=== PATIENT | female | born 2000 | race Caucasian/White ===

== ENCOUNTER 2020-01-16 00:25 | Emergency (ER) | payer BC, SELFPAY ==
[2020-01-16 00:30] VITALS: BP 116/78; PULSE 95; RESP 16; TEMP 36.6; O2SAT 97; BMI 23.1
--- NOTE | 2020-01-16 00:54 | ED_ITS ---
HPI - Headache General: Chief Complaint: Headache Stated Complaint: blurred vision, headache, shakes Time Seen by Provider: 01/16/20 00:49 Source: patient and family Mode of arrival: ambulatory Limitations: no limitations History of Present Illness: HPI Narrative: Rebecca Head is a 19-year-old female who comes in complaining of headaches intermittently for the past month. Patient states she normally does not get headaches. The headache she describes today is that of pain on the left side of her head that then last for about a minute which is then slowly followed by hearing and vision difficulties and nausea. When asked further the patient states that she has nausea almost constantly. She states that she wakes up with it and it lasts almost all day. The patient has not had any vomiting, fever, neck pain or stiffness, chest pain, shortness of breath, abdominal or back pain. When asked about now the patient states she is not currently nauseated but does reiterate that she is normally almost always nauseated. Patient's had nothing like this before until this last month. She is unaware of anything that makes her symptoms better or worse. Associated symptoms: Deny chest pain, confusion, diaphoresis, fever(s), lightheadedness, malaise, nausea, pre-syncope, rash, syncope or vomiting Review of Systems Const: Denies: fever(s), chills, body aches, fatigue, malaise or diaphoresis Eyes: Reports: change in vision (See HPI); Denies: blurry vision, photophobia, eye discomfort, eye discharge, eye redness or yellow eyes ENMT: Denies: throat pain, odynophagia, hoarseness, swelling of lips/tongue, ear or mastoid pain, ear discharge, change in hearing or nasal discharge Card: Denies: chest pain, palpitations, irregular heart rhythm, edema, lightheadedness, syncope, pre-syncope, dyspnea on exertion or orthopnea Resp: Denies: dyspnea, productive cough, non-productive cough, wheezing, hemoptysis or chest congestion GI: Denies: abdominal pain, nausea, vomiting, hematemesis, coffee ground emesis, heartburn, diarrhea, constipation, GI cramping, hematochezia or melena : Denies: flank pain, dysuria, urinary frequency, urinary urgency or hematuria Musc: Denies: neck pain, back pain, extremity pain, extremity swelling, joint pain, joint swelling, joint redness, joint warmth or joint stiffness Skin/Breast: Denies: rash, pruritus, erythema, skin pain or skin tenderness Neuro: Reports: headache(s); Denies: numbness in extremities, weakness in extremities, sensory changes, lack of coordination, difficulty walking, dizziness, vertigo, confusion, Slurred speech present or seizure-like activity Alexis/Lymph: Denies: easy bruising, easy bleeding, petechiae, purpura or enlarged lymph nodes All/Imm: Denies: urticaria, throat swelling, tongue swelling, facial swelling or acute wheezing PFSH ED PFSH: Medical History No pertinent past medical history Surgical History (Reviewed 01/16/20 @ :27 by Janay Lisa) S/P tonsillectomy [place] teeth removed Social History Smoking and tobacco status: never smoked Alcohol intake: never Physical Exam Const: COMMON NORMALS: no acute distress, patient oriented x3, no limitations and alert GENERAL APPEARANCE: cooperative HENMT: COMMON NORMALS: normocephalic, atraumatic, external ears normal, EAC's normal and Normal external nose present HEAD & SCALP: normal to inspection, normocephalic and atraumatic FACE & SINUS: normal facial exam and face symmetric NOSE: Normal external nose present and Normal nares present EXTERNAL EAR: Yes external ears normal EXTERNAL AUDITORY CANAL: EAC's normal MOUTH: Normal oral and palatal mucosa present, lip normal and tongue normal Eye: COMMON NORMALS: Equal, round and reactive pupils present and conjunctivae normal GENERAL EYE: appearance normal, both eyes and all related structures ALIGNMENT: Yes alignment normal PERIORBITAL: periorbital findings normal EYELID: eyelids normal CONJUNCTIVA: Yes conjunctivae normal SCLERA: sclerae normal PUPIL: Yes Equal, round and reactive pupils present Neck/C-Spine: COMMON NORMALS: full ROM, no lymphadenopathy, supple, no meningeal signs and no JVD GENERAL: Yes normal visual inspection and Yes trachea midline Chest: COMMONS NORMALS: normal inspection of the chest and normal palpation of entire chest wall Resp: COMMON NORMALS: normal respiratory effort, No retractions, No use of accessory muscles and clear to auscultation bilaterally EFFORT & INSPECTION: Yes able to speak in complete sentences and Yes symmetric chest movement AUSCULTATION: clear to auscultation bilaterally, no crackles, no rales, no rhonchi and no wheezes Cardio: COMMON NORMALS: no JVD, regular rate, regular rhythm, S1 normal heart sound present and S2 normal heart sound present RATE: regular rate RHYTHM: regular rhythm HEART SOUNDS: S1 normal heart sound present, S2 normal heart sound present, no click, no gallops, no murmurs and no rubs GI: COMMON NORMALS: Soft to palpation and No hepatosplenomegaly present PALPATION: Yes Soft to palpation, No Tenderness to palpation present (GI), No Guarding due to palpation present (GI), No Rigid due to palpation, Yes No hepatosplenomegaly present, No Hernia present, No Palpable mass present and No Pulsatile mass present : COMMON NORMALS: Yes no CVA tenderness BLADDER/KIDNEY EXAM: Yes no CVA tenderness EXTERNAL FEMALE EXAM: No Hernia present Back/Pelvis: COMMON NORMALS: no CVA tenderness, thoracic and lumbar spine normal to inspection, no thoracic nor lumbar tenderness and thoraco-lumbar ROM normal Extremity: COMMON NORMALS: normal to inspection, full ROM, capillary refill normal, no joint enlargement, no clubbing, cyanosis or edema and no calf tenderness Neuro: COMMON NORMALS: patient oriented x3, CN's II-XII intact bilaterally, moves all extremities, no focal motor deficits and no sensory deficits noted SENSORIUM/ORIENTATION: Yes alert MENINGEAL SIGNS: Yes no meningeal signs SPEECH: speech normal Psych: COMMON NORMALS: mental status grossly normal, Normal thought process present, cooperative, normal affect, speech normal and activity/motor behavior normal SPEECH: Yes normal speech THOUGHT PROCESS: Normal thought process present Skin: COMMON NORMALS: no rashes or lesions noted, turgor normal, no jaundice, no petechiae and no mottling GENERAL SKIN EXAM: no rashes or lesions noted and turgor normal Course Vital Signs: Vital signs: Vital Signs Temperature 97.9 F 01/16/20 00:30 Pulse Rate 74 01/16/20 02:42 Respiratory Rate 14 01/16/20 02:42 Blood Pressure 126/74 01/16/20 02:42 Pulse Oximetry 100 01/16/20 02:42 MDM - Headache MDM Narrative: Medical decision making narrative: Rebecca is a very nice 19-year-old female who comes in complaining of headaches for the past month. They are not every day but today she had 2 episodes. They are sharp in nature in the posterior part of her head but last only a minute or so and then she gets visual and auditory symptoms. She has persistent nausea with this as well. This does not sound like a subarachnoid hemorrhage or meningitis. Patient has no fever component and she is free range of motion of her head without pain. Her neurologic exam is normal and unremarkable. CT of her head as well as her lab work is normal. This is an atypical type of headache and I believe will need further work-up as an outpatient. I recommended to her and her mother that they follow-up with Dr. Cruz which they agreed to do. This time though the patient is neurologic exam and no symptoms her work appears been unremarkable. She is been encouraged to return should her symptoms change or worsen she understands us and will follow-up as directed and return if needed. Lab Data: Attestation: I reviewed the patient's lab results. Labs: Lab Results 01/16/20 01/16/20 01/16/20 Range/Units 00:38 01:25 01:25 WBC Cancelled Corrected WBC Cancelled RBC Cancelled Hgb Cancelled Hct Cancelled MCV Cancelled MCH Cancelled MCHC Cancelled RDW Cancelled Plt Count Cancelled MPV Cancelled Gran % Cancelled Neut % (Auto) Cancelled Lymph % (Auto) Cancelled [place] % (Auto) Cancelled Eos % (Auto) Cancelled Baso % (Auto) Cancelled Neut # (Auto) Cancelled Lymph # (Auto) Cancelled [place] # (Auto) Cancelled Eos # (Auto) Cancelled Baso # (Auto) Cancelled Absolute Gran (aut o) Cancelled Nucleated RBC % (a uto) Cancelled Nucleated RBCs # Cancelled Sodium Cancelled Potassium Cancelled Chloride Cancelled Carbon Dioxide Cancelled Anion Gap Cancelled BUN Cancelled Creatinine Cancelled GFR Calculation Cancelled Glucose Cancelled Calculated Osmolal ity Cancelled Calcium Cancelled Magnesium Cancelled Total Bilirubin Cancelled AST Cancelled ALT Cancelled Alkaline Phosphata se Cancelled Total Protein Cancelled Albumin Cancelled Globulin Cancelled HCG, Qual (Negative) Urine Color Yellow (Yellow) Urine Appearance Clear (CLEAR) Urine pH 6.5 (5-7) Ur Specific Gravit y 1.005 (1.005-1.030) Urine Protein Neg (Negative) Urine Glucose (UA) Norm (Normal) Urine Ketones Negative (Negative) Urine Blood Neg (Negative) Urine Nitrate Negative (Negative) Urine Bilirubin Neg (Negative) Urine Urobilinogen Norm (Negative) mg/dL Ur Leukocyte Brit ase Negative (Negative) 01/16/20 01/16/20 01/16/20 Range/Units 01:25 02:00 02:00 WBC 9.0 Corrected WBC RBC 4.21 Hgb 12.8 Hct 37.2 MCV 88.4 MCH 30.4 MCHC 34.4 RDW 12.1 Plt Count 290 MPV 10.5 H Gran % Neut % (Auto) 65.7 Lymph % (Auto) 26.5 [place] % (Auto) 6.0 Eos % (Auto) 0.8 Baso % (Auto) 0.8 Neut # (Auto) 5.88 Lymph # (Auto) 2.4 [place] # (Auto) 0.5 Eos # (Auto) 0.1 Baso # (Auto) 0.1 Absolute Gran (aut o) Nucleated RBC % (a uto) 0 Nucleated RBCs # 0.0 Sodium 140 Potassium 3.9 Chloride 107 Carbon Dioxide 22 Anion Gap 14.9 BUN 9 Creatinine 0.5 GFR Calculation 158.9 H Glucose 100 Calculated Osmolal ity 289 Calcium 9.4 Magnesium Total Bilirubin AST ALT Alkaline Phosphata se Total Protein Albumin Globulin HCG, Qual Negative (Negative) Urine Color (Yellow) Urine Appearance (CLEAR) Urine pH (5-7) Ur Specific Gravit y (1.005-1.030) Urine Protein (Negative) Urine Glucose (UA) (Normal) Urine Ketones (Negative) Urine Blood (Negative) Urine Nitrate (Negative) Urine Bilirubin (Negative) Urine Urobilinogen (Negative) mg/dL Ur Leukocyte Brit ase (Negative) Imaging Data^: CT Head: Radiologist's impression: [address] [place] [address] CT Scan Report Signed Patient: Rebecca Head Unit #: [id number] : 2000 Age/Sex: 19 / F ADM Date: 01/16/20 Loc: ER Room/Bed: Attending Dr: Ordering Provider/Ordering MD: Janay Lisa DO Date of Service: 01/16/20 Procedure(s): CT head wo con* [id number] Accession Number(s): [id number] Report Number: [id number] PROCEDURE INFORMATION: Exam: CT Head Without Contrast Exam date and time: 01/16/2020 12:59 AM Age: 19 years old Clinical indication: Pain; Visual disturbance; Patient HX: Transient episodes of occipital headache with vision loss and tremors. ; Additional info: New onset headaches TECHNIQUE: Imaging protocol: Computed tomography of the head without contrast. Radiation optimization: All CT scans at this facility use at least one of these dose optimization techniques: automated exposure control; mA and/or kV adjustment per patient size (includes targeted exams where dose is matched to clinical indication); or iterative reconstruction. COMPARISON: No relevant prior studies available. RADIATION DOSE METRICS: Total DLP (mGy-cm): 727.41 FINDINGS: Brain: The brain is unremarkable. There is no mass effect or significant white matter disease. There is no acute intracranial hemorrhage. Cerebral ventricles: There is no significant ventricular dilation. The basal cisterns are unremarkable. Bones/joints: The calvarium is intact. Paranasal sinuses: The paranasal sinuses are clear. Mastoid air cells: The mastoid air cells are clear. Soft tissues: The visible extracranial soft tissues are unremarkable. CT/CT head wo con* [id number] IMPRESSION: No acute intracranial abnormality. Radiation Dose CTDIVOL = (mGy): DLP = 727.41 (mGy-cm) Dictated By: Marino Ruano MD Signed By: Marino Ruano MD Signed Date/Time: 01/16/20225 DD/ 4 Discharge Plan Discharge Patient Disposition: Home Clinical Impression: Headache Qualifiers: Headache type: unspecified Headache chronicity pattern: episodic headache Intractability: not intractable Qualified Code(s): R51.9 - Headache, unspecified Condition: Stable Discharge Orders: Discharge Order (Routine); Ordered 01/16/20 Ordered By: Janay Lisa Referrals: [facility] [Other] Miladis Cruz MD [Physician] - 1-3 days Discharge Diet: Advance as tolerated Discharge Activity: Increase activity as tolerated Patient Instructions: Acute Headache (ED) Activity Restrictions/Additional Instructions: Please return to the ER immediately for any of the signs or symptoms listed on your discharge instruction sheets, worsening/changing of your symptoms, you are not getting better as quickly as expected, or for ANY other cause or concerns. Be certain to call and arrange an appointment for Dr. Cruz or with her nurse practitioner for further evaluation and care. If your headaches become worse, you develop vomiting, he develop a fever, or any other symptoms please return to the ER immediately for recheck. Discharge Date/Time: 01/16/20 02:49 Coding Level of Care Code ED Inventory Manager for Chg Fwd Exam Comprehensive
[2020-01-16 01:43] LABS: HCG, Serum Qual Negative (Negative)
[2020-01-16 01:52] LABS: Add Urine Microscopic? NO
[2020-01-16 02:09] LABS: Basophils # 0.1 10^3/uL (0.0-0.1); Basophils % 0.8 %; Eosinophils # 0.1 10^3/uL (0.0-0.8); Eosinophils % 0.8 %; Hematocrit 37.2 % (37.0-47.0); Hemoglobin 12.8 g/dL (11.5-15.3); Lymphocytes # 2.4 10^3/uL (1.5-6.5); Lymphocytes % 26.5 %; Mean Corpuscular HGB Conc 34.4 g/dL (30.0-36.0); Mean Corpuscular Hemoglobin 30.4 pg (28.0-34.0); Mean Corpuscular Volume 88.4 fL (81-99); Mean Platelet Volume 10.5 fL (7.4-10.4); Monocytes # 0.5 10^3/uL (0.2-0.9); Neutrophils # 5.88 10^3/uL (1.8-8.0); Neutrophils % 65.7 %; Nucleated Red Blood Cells % 0 %; Platelet Count 290 10^3/cmm (130-400); Red Blood Count 4.21 10^6/uL (4.1-5.3); Red Cell Distribution Width 12.1 % (12.1-15.1)
[2020-01-16 02:12] LABS: Bilirubin Urine Neg (Negative); Blood Urine Neg (Negative); Glucose Urine UA Norm (Normal); Ketones Urine Negative (Negative); Leukocyte Esterase Urine Negative (Negative); Nitrate Urine Negative (Negative); Protein Urine Neg (Negative); Specific Gravity, Urine 1.005 (1.005-1.030); Urine Appearance Clear (CLEAR); Urine Color Yellow (Yellow); Urobilinogen Urine Norm (Negative); pH Urine 6.5 (5-7)
[2020-01-16 02:25] LABS: Anion Gap 14.9 (5-19); Blood Urea Nitrogen 9 mg/dL (6-20); Calcium 9.4 mg/dL (8.5-10.5); Carbon Dioxide 22 mmol/L (22-29); Chloride 107 mmol/L (98-107); Glomerular Filtration Rate 158.9 mL/min (90-130); Glucose 100 mg/dL (65-115); Osmolality Calculated 289 mOsm/kg (285-295); Potassium 3.9 mmol/L (3.5-5.1); Sodium 140 mmol/L (136-145)
[2020-01-16 02:42] VITALS: BP 126/74; PULSE 74; RESP 14; O2SAT 100
--- NOTE | 2020-01-17 13:12 | DCPLANNER ---
security operations manager had message to schedule a follow up appointment for patient with Dr. Cruz. security operations manager called the office of Dr. Cruz, spoke with skill training program coordinator, Denia. security operations manager gave clinic patients information, was told that patients information would be printed and reviewed. Clinic will call patient with appointment information.
--- NOTE | 2020-01-20 15:16 | DCPLANNER ---
Patient has a follow up appointment scheduled for , February 16, 2020 at 2:[address] Cruz. Clinic will call patient with appointment information.
--- NOTE | 2020-04-06 12:06 | DCPLANNER ---
Patient had a follow up appointment scheduled for 20 - patient did not attend appointment.
== END 2020-01-16 02:49 | disposition home or self-care (01) ==
PROVIDERS: Emergency Provider Emergency Medicine
DX: G44.89 Other headache syndrome (principal)
CPT/HCPCS: 12345; 70450; 80048; 81003; 84703; 85025; 99281; 99283

== ENCOUNTER → 2021-10-18 11:47 | Outpatient (BNVA) | payer OTHER, SELFPAY | PROVIDERS: Visit Provider Nurse Practitioner Women's Health | DX: N92.6 Irregular menstruation, unspecified (principal) | CPT/HCPCS: 84146; 84402; 84439; 84443; 84702 ==

== ENCOUNTER → 2021-10-29 14:43 | Outpatient (BNVA) | payer OTHER, SELFPAY | PROVIDERS: Visit Provider Nurse Practitioner Women's Health | DX: N92.6 Irregular menstruation, unspecified (principal); N83.8 Other noninflammatory disorders of ovary, fallopian tube and broad ligament | CPT/HCPCS: 76830 ==

== ENCOUNTER → 2023-01-07 10:00 | Outpatient (BNVA) | payer OTHER, SELFPAY | PROVIDERS: Visit Provider Nurse Practitioner Women's Health | DX: Z12.4 Encounter for screening for malignant neoplasm of cervix (principal); E28.2 Polycystic ovarian syndrome; Z01.419 Encounter for gynecological examination (general) (routine) without abnormal findings | CPT/HCPCS: 88175 ==